=== PATIENT | female | born 1970 | race Caucasian/White ===

== ENCOUNTER → 2017-05-26 | Outpatient (CLI) | payer BC | LOC: FIMAGING 08:30 | DX: Z12.31 Encounter for screening mammogram for malignant neoplasm of breast (principal) | CPT/HCPCS: G0202 ==

== ENCOUNTER → 2017-06-07 | Outpatient (CLI) | payer BC | LOC: BRMIMAGING 09:25 | DX: Z12.39 Encounter for other screening for malignant neoplasm of breast (principal); R92.2 Inconclusive mammogram | CPT/HCPCS: G0206 ==

== ENCOUNTER 2017-09-01 21:48 | Emergency (ER) | payer BC ==
[2017-09-01 22:03] VITALS: TEMP 98.6; O2SAT 95
--- NOTE | 2017-09-01 23:10 | EDPHY ---
H & P Time Seen by Provider: 09/01/17 22:16 HPI/ROS: At 6:00 p.m. this patient was walking across a parking lot on the way door son[employer] swimming meets and she was caring a jacket and slipped or tripped on the jacket causing her to fall onto her right elbow. She sustained a laceration. She cleaned the laceration, applied a Band-Aid and attended the swim meet. She noticed a sharp radiating pain down her forearm associated with this that " feels like nerve pain ". She points to the radial nerve distribution in describing this-dorsum of 2nd and 3rd fingers with paresthesias that area. She came in by private vehicle for further evaluation and for potential sutures. ROS: Neuro: No headache. She did not injure her head. No focal weakness. Musculoskeletal: No other extremity injuries. Integumentary: Elbow laceration. No other lacerations. 5 point ROS is otherwise negative Past Medical/Surgical History: Otherwise healthy with immunizations up today. Social History: Patient is Ortho Neuro nurse at [employer] Smoking Status: Never smoked Physical Exam: Physical Exam Vital signs are normal. General: No acute distress HEENT: Atraumatic. Eyes: Pupils equal and react to light. Extraocular motions are intact. Lungs: No respiratory distress. Cardiac: Brisk capillary refill is intact throughout. Pulses are 2+ and symmetric in the affected extremity. Skin: No rash or pallor. She has a 2 cm stellate laceration overlying the right olecranon with mild bleeding. No foreign bodies on direct examination. Subcutaneous tissues evident but no deeper structures are injured. Neuro: Alert. Although the patient has some paresthesias in the radial nerve distribution-dorsum of 2nd 3rd fingers and part of her thumb, she has no light touch sensory deficits when using a paper clip to compare sensation to the hands. She does seem to have slight weakness with finger AB duction but no weakness with finger extension on the affected side. Initial differential diagnosis: Olecranon contusion versus fracture, radial nerve neurapraxia/paresthesias, laceration Constitutional: Initial Vital Signs Temperature (C) 37 C 09/01/17 21:59 Heart Rate 98 09/01/17 21:59 Respiratory Rate 20 09/01/17 21:59 Blood Pressure 156/103 H 09/01/17 21:59 O2 Sat (%) 95 09/01/17 21:59 O2 Delivery Mode Room Air Allergies/Adverse Reactions: OPA CLEANING PRODUCTS Allergy (Severe, Uncoded 09/01/17 21:58) DIFFICULTY BREATHING ZYME PRODUCTS Allergy (Severe, Uncoded 09/01/17 21:58) DIFFICULTY BREATHING ENVIRONMENTAL Allergy (Intermediate, Uncoded 09/01/17 21:58) HEADACHE/STUFFY NOSE Home Medications: Medication Instructions Recorded LEVOTHYROXINE SODIUM 09/01/17 Methocarbamol [Robaxin 750 mg (*)] 750 - 1,500 mg PO QID PRN #30 tab 09/01/17 MDM/Departure - MDM Diagnostics: Three-view elbow x-ray: Negative for fracture by my interpretation Imaging: I viewed and interpreted images myself Procedures: The wound is 2 cm, stellate laceration, full-thickness but no deeper structures injured.. The wound was copiously irrigated with saline. The wound was explored for foreign bodies and none were found. The wound was prepped and draped in the normal sterile fashion. The wound was anesthetized using a 50 50 mix of 0.25% Marcaine and 1% plain lidocaine, 27 gauge needle, 3 mL with good effect.. The edges were reapproximated using 4 0 Prolene on a P3 needle -5 interrupted sutures with good hemostasis and cosmesis. The patient tolerated the procedure well. There were no complications. A bandage is placed. ED Course/Re-evaluation: Discussion: Patient with elbow laceration and olecranon contusion without fracture. She also has a very tight right trapezius muscle from the fall with muscle spasm - findings c/w a strain of her right trapezius. She has neuropathic type pain symptoms sharp in nature radiating mostly distally from the elbow but also in the upper arm. Some of this may be due to trapezius spasm near the brachial plexus but is more likely a neurapraxia from a direct blow to the elbow. I counseled her regarding this. The only minimal weakness I can appreciate is some slight weakness in finger AB duction/interosseous muscles which is curious in that her sensory paresthesias are in the radial nerve distribution whereas this subtle motor finding would corresponds to ulnar nerve distribution. Her laceration was superficial & I do not think there is any permanent nerve injury/laceration of the nerve but more likely a compressive type injury at the elbow verses muscle spasm with nerve symptoms from her shoulder. I offered the patient Valium as a muscle relaxer for tonight, but she declines explaining she felt too sedated on Valium in the past but accepts a Robaxin prescription that she will try for any ongoing symptoms. She will follow up with Dr. Ayala-orthopedics for any ongoing symptoms. - Depart Disposition: Home, Routine, Self-Care Clinical Impression: Elbow laceration Qualifiers: Encounter type: initial encounter Laterality: right Qualified Code(s): S51.011A - Laceration without foreign body of right elbow, initial encounter Neurapraxia of right upper extremity Qualifiers: Encounter type: initial encounter Qualified Code(s): S44.91XA - Injury of unspecified nerve at shoulder and upper arm level, right arm, initial encounter Trapezius muscle strain Qualifiers: Encounter type: initial encounter Laterality: right Qualified Code(s): S46.811A - Strain of other muscles, fascia and tendons at shoulder and upper arm level, right arm, initial encounter Condition: Good Instructions: Care For Your Stitches (ED) Additional Instructions: Diagnoses: 1. Elbow laceration 2. Neurapraxia of right upper extremity 3. Trapezius muscle strain Your nerve symptoms are likely a neurapraxia-from a direct blow to the nerve in her upper extremity causing some tingling. Usually this improved over a period of days or weeks. Plan: [id number] mg per 6 hr while awake. Tylenol for comfort in addition if needed. Methocarbamol muscle relaxant in addition if needed. Your elbow symptoms should improve over the next week or so. Follow up with Dr. Edu Ayala-orthopedic physician for any ongoing symptoms despite the plan. Keep the wound clean and dry for the next 2 days then clean it daily with warm soapy water Return for Sutures to be removed in 10-12 days Return sooner for any redness, discharge or other concerns. Stand Alone Forms: Work Excuse Prescriptions: Methocarbamol [Robaxin 750 mg (*)] 750 - 1,500 mg PO QID PRN #30 tab PRN Reason: Muscle Spasms Referrals: NONE *PRIMARY CARE P,. [Primary Care Provider] - As per Instructions Edu Ayala MD [Medical Doctor] - As per Instructions
[2017-09-01 23:50] VITALS: BP 144/80; PULSE 90; RESP 18
== END 2017-09-01 23:49 | disposition home or self-care (01) ==
LOC: CED 21:48
PROC: 0HQDXZZ Repair Right Lower Arm Skin, External Approach (ICD-10-PCS; principal; 2017-09-01)
DX: S51.011A Laceration without foreign body of right elbow, initial encounter (principal); S44.91XA Injury of unspecified nerve at shoulder and upper arm level, right arm, initial encounter; S46.811A Strain of other muscles, fascia and tendons at shoulder and upper arm level, right arm, initial encounter; W01.0XXA Fall on same level from slipping, tripping and stumbling without subsequent striking against object, initial encounter; Y92.481 Parking lot as the place of occurrence of the external cause; Y99.8 Other external cause status; Y93.01 Activity, walking, marching and hiking
CPT/HCPCS: 73080-PO

== ENCOUNTER → 2018-06-26 | Outpatient (CLI) | payer BC | LOC: CIMAGING 08:00 | DX: R22.1 Localized swelling, mass and lump, neck (principal) | CPT/HCPCS: 76536-PO ==

== ENCOUNTER → 2018-10-02 | Outpatient (CLI) | payer BC | LOC: FIMAGING 11:38 | DX: Z12.31 Encounter for screening mammogram for malignant neoplasm of breast (principal) ==